=== PATIENT | male | born 1960 | race African-American/Black ===

== ENCOUNTER 2018-01-12 03:03 | Emergency (ER) | payer SELFPAY ==
[~2018-01-12] VITALS: Ht 175.3 cm; Wt 79.5 kg
[2018-01-12 03:42] VITALS: BP 141/97
== END 2018-01-12 03:58 | disposition left against medical advice (07) ==
LOC: EMS 03:04
DX: I48.91 Unspecified atrial fibrillation (principal); F10.10 Alcohol abuse, uncomplicated; E11.9 Type 2 diabetes mellitus without complications; Y90.9 Presence of alcohol in blood, level not specified
CPT/HCPCS: 99283